=== PATIENT | female | born 1980 | race American Indian/Alaskan Native ===

== ENCOUNTER 2021-02-08 19:19 | Emergency (ER) | payer SELFPAY ==
[2021-02-08 19:53] VITALS: BP 159/93
[2021-02-08] MEDS ORDERED: IBUPROFEN 600 MG TAB PO ONE (19:59)
[2021-02-08] MEDS ORDERED: DIPHtheria,PERTUSSIS(ACELL),TETANUS VACCINE/PF 0.5 ML VIAL IM ONE (19:59)
[2021-02-08] MEDS ORDERED: SULFAMETHOXAZOLE/TRIMETHOPRIM 800/160MG DS TAB PO ONE (19:59)
--- NOTE | 2021-02-08 20:14 | Emergency Department Report ---
ED General Adult HPI - General Chief complaint: Skin Rash Stated complaint: INSECT BITE/LEFT ARM Time Seen by Provider: 02/08/21 19:58 Source: patient Mode of arrival: Ambulatory Limitations: No Limitations - History of Present Illness Initial comments: Patient is a 40-year-old female presents emergency room with complaints of a possible insect bite to the left arm that occurred earlier this morning. She states that she did not feel or see anything bite her. States that when she woke up this morning she began to have itching to her arm. She states later on throughout the day her arm began to turn red constant swelling and some small blisters present. She denies any drainage, fever, nausea, vomiting, diarrhea, weakness, numbness, chills. She states her only known allergy is amoxicillin. She denies any new soaps, lotions, detergents, medications, foods, anything new that she is aware of. She has a past medical history of tachycardia and was on a beta-tiffanie but has not been on it in several months since she does not have a primary care doctor locally anymore since she moved, she is unsure of the name and the dose. Severity scale (0 -10): 2 - Related Data Previous Rx's Medication Instructions Recorded Last Taken Type Naproxen [EC-Naprosyn] 500 mg PO BID PRN #20 tablet. 02/08/21 Unknown Rx Sulfamethoxazole/Trimethoprim 1 each PO BID 10 Days #20 tablet 02/08/21 Unknown Rx [Bactrim DS TAB] atenoloL [Tenormin] 25 mg PO BID 30 Days #60 tab 02/08/21 Unknown Rx diphenhydrAMINE [Benadryl CAP] 25 mg PO Q6HR PRN #14 capsule 02/08/21 Unknown Rx Allergies Allergy/AdvReac Type Severity Reaction Status Date / Time amoxicillin Allergy Swelling Verified 02/08/21 19:41 ED Review of Systems ROS: Stated complaint: INSECT BITE/LEFT ARM Other details as noted in HPI Comment: All other systems reviewed and negative ED Past Medical Hx - Past Medical History Previous Medical History?: No - Surgical History Past Surgical History?: No - Social History Smoking Status: Never Smoker Substance Use Type: None - Medications Home Medications: Home Medications Medication Instructions Recorded Confirmed Last Taken Type Naproxen [EC-Naprosyn] 500 mg PO BID PRN #20 tablet. 02/08/21 Unknown Rx Sulfamethoxazole/Trimethoprim 1 each PO BID 10 Days #20 tablet 02/08/21 Unknown Rx [Bactrim DS TAB] atenoloL [Tenormin] 25 mg PO BID 30 Days #60 tab 02/08/21 Unknown Rx diphenhydrAMINE [Benadryl CAP] 25 mg PO Q6HR PRN #14 capsule 02/08/21 Unknown Rx ED Physical Exam - General Limitations: No Limitations General appearance: alert, in no apparent distress - Head Head exam: Present: atraumatic, normocephalic - Eye Eye exam: Present: normal appearance - ENT ENT exam: Present: mucous membranes moist - Respiratory Respiratory exam: Absent: respiratory distress, accessory muscle use - Cardiovascular Cardiovascular Exam: Present: normal rhythm, tachycardia, normal heart sounds - Neurological Exam Neurological exam: Present: alert, oriented X3 - Psychiatric Psychiatric exam: Present: normal affect, normal mood - Skin Skin exam: Present: other (there is a 7cm x 4 cm area of erythema and increased warmth, there are a couple of very small vesicles, no necrosis, no drainage, no fluctuance, FROM of the RUE, neurovascularly intact) ED Course Vital Signs 02/08/21 02/08/21 02/08/21 19:45 20:08 20:48 Temperature 98.5 F Pulse Rate 128 H 133 H Respiratory 18 18 Rate Blood Pressure 159/93 O2 Sat by Pulse 96 Oximetry ED Medical Decision Making - Medical Decision Making Patient is a 40-year-old female presents emergency room with complaints of a possible insect bite to the left arm that occurred earlier this morning. She states that she did not feel or see anything bite her. States that when she woke up this morning she began to have itching to her arm. She states later on throughout the day her arm began to turn red constant swelling and some small blisters present. She denies any drainage, fever, nausea, vomiting, diarrhea, weakness, numbness, chills. She states her only known allergy is amoxicillin. She denies any new soaps, lotions, detergents, medications, foods, anything new that she is aware of. She has a past medical history of tachycardia and was on a beta-tiffanie but has not been on it in several months since she does not have a primary care doctor locally anymore since she moved, she is unsure of the name and the dose. Vitals with elevated heart rate, otherwise stable. Patient is afebrile. She has no chills or fever. Tachycardia does not appear secondary to any infection, it is likely due to her history. She states that she has been off of her beta-tiffanie for a while. I discussed with Dr. Wylie, ER attending who advised to start patient on atenolol 25 mg twice daily. On exam: there is a 7cm x 4 cm area of erythema and increased warmth, there are a couple of very small vesicles, no necrosis, no drainage, no fluctuance, FROM of the RUE, neurovascularly intact. Examination appears consistent with cellulitis. No signs of abscess at this time. Patient given Bactrim, ibuprofen, Tdap while in the emergency department. Patient states that she is feeling fine and does not feel like her heart rate is elevated and she has no other symptoms except for that her arm feels itchy. She has no signs of allergic reaction. This could be secondary to spider bite causing cellulitis or another insect bite, looks like she is having a localized reaction. Patient given prescription for Bactrim, naproxen, Benadryl. Advised patient Please take medication as prescribed. Please follow-up with a primary care doctor in the next 3 days for reexam ination. Return to emergency room immediately for any new or worsening symptoms including but not limited to worsening swelling, worsening pain, increasing redness, increasing drainage, fevers, vomiting, chills, etc. Critical care attestation.: If time is entered above; I have spent that time in minutes in the direct care of this critically ill patient, excluding procedure time. ED Disposition Clinical Impression: Tachycardia Cellulitis Qualifiers: Site of cellulitis: extremity Site of cellulitis of extremity: upper extremity Laterality: left Qualified Code(s): L03.114 - Cellulitis of left upper limb Disposition: - TO HOME OR SELFCARE Is pt being admited?: No Does the pt Need Aspirin: No Condition: Stable Instructions: Cellulitis, Adult Additional Instructions: Please take medication as prescribed. Please follow-up with a primary care doctor in the next 3 days for reexamination. Return to emergency room immediately for any new or worsening symptoms including but not limited to worsening swelling, worsening pain, increasing redness, increasing drainage, fevers, vomiting, chills, etc. Prescriptions: Sulfamethoxazole/Trimethoprim [Bactrim DS TAB] 1 each PO BID 10 Days #20 tablet diphenhydrAMINE [Benadryl CAP] 25 mg PO Q6HR PRN #14 capsule PRN Reason: itching Naproxen [EC-Naprosyn] 500 mg PO BID PRN #20 tablet. PRN Reason: pain atenoloL [Tenormin] 25 mg PO BID 30 Days #60 tab Referrals: PRIMARY CAREMD [Primary Care Provider] - 2-3 Days EUSEBIA SEPULVEDA MD [Staff Physician] - 2-3 Days [facility] [Provider Group] - 2-3 Days [facility] [Outside] - 2-3 Days [facility], [LAB/CONTRACT] - 2-3 Days Time of Disposition: 20:57 Print Language: HEBREW
== END 2021-02-08 21:27 | disposition home or self-care (01) ==
LOC: ED 19:19
DX: L03.114 Cellulitis of left upper limb (principal); R00.0 Tachycardia, unspecified; Z88.0 Allergy status to penicillin; Z79.899 Other long term (current) drug therapy
CPT/HCPCS: 90471; 90715; 99282